=== PATIENT | female | born 1970 | race Caucasian/White ===

== ENCOUNTER 2016-05-01 15:23 | Emergency (ER) | payer OTHER ==
[~2016-05-01 15:23] MED LIST: LIPITOR10 MG PO; NEURONTIN300 MG PO; PREDNISONE 10MG10 MG PO; TYLENOL325 M1 PO; VITAMIN D31000 UNI1 PO; ZESTRIL20 M1 PO
== END 2016-05-01 18:41 | disposition home or self-care (01) ==
LOC: ER 15:23
DX: J06.9 Acute upper respiratory infection, unspecified (principal); R11.0 Nausea; M79.1 Myalgia; F17.210 Nicotine dependence, cigarettes, uncomplicated
CPT/HCPCS: 87400; 94664; 99283-25